=== PATIENT | female | born 1930 | race Hispanic/Latino ===

== ENCOUNTER 2019-01-03 13:12 | Observation (INO) | payer MEDICARE, OTHER ==
[~2019-01-03] VITALS: Ht 170.2 cm; Wt 65.8 kg
--- OUTSIDE RECORDS SUMMARY | 2019-01-03 13:15 | XMS REPORT ---
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 Allergies, Adverse Reactions, Alerts Allergy Name Allergy Type Status Severity Reaction(s) Onset Date Inactive Date Treating Clinician Comments No Known Allergies DA Active U 2018-10-15 00:00:00 No Known Allergies DA Active U 2018-08-13 00:00:00 No Known Drug Intolerances DA Active U 2010-04-06 00:00:00 Medications This patient has no known medications. Results Test Description Test Time Test Comments Text Results Atomic Results Result Comments CHEST SINGLE (PORTABLE) 2018-12-06 20:02:00 [facility] [address] [address] Patient Name: THAD FERNANDEZ MR #: [id number] : 1930 Age/Sex: 88/F Req #: [id number] Adm Physician: Ordered by: YAYO ALMONTE SCORER HELPER Report #: [id number] Location: ER Room/Bed: Procedure: [id number] DX/CHEST SINGLE (PORTABLE) Exam Date: 12/06/18 Exam Time: 190 REPORT STATUS: Signed EXAMINATION: CHEST SINGLE (PORTABLE) INDIC ATION: Short of breath COMPARISON: Chest CT 05/23/2018 FINDINGS: AP view TUBES and LINES: None. LUNGS: Faint reticular bilateral infrahilar opacities, corresponds to scarring seen on chest CT 05/23/2018. There is mild prominence of the central pulmonary vasculature, consistent with pulmonary venous congestion. No consolidations or pulmonary edema. PLEURA: No pleural effusion or pneumothorax. HEART AND MEDIASTINUM: The cardiomediastinal silhouette is unremarkable. There are atherosclerotic calcifications within the aorta. BONES AND SOFT TISSUES: No acute osseous lesion. Soft tissues are unremarkable. UPPER ABDOMEN: No free air under the diaphragm. IMPRESSION: No acute thoracic abnormality. Chronic scarring/atelectasis in the lung bases. Signed by: Dimitri Tompkins DO on 12/06/2018 8:05 PM Dictated By: DIMITRI TOMPKINS DO 04 Transcribed By: LATA on 12/06/182004 COPY TO: YAYO ALMONTE SCORER HELPER HGB HCT 2018-10-15 14:51:00 HEMOGLOBIN (test code=HGB) 9.1 gram/dL 11.5-15.5 HEMATOCRIT (test code=HCT) 30.5 % 36.0-46.0 HGB [id number] 14:55:00* Test Item Value Reference Range Comments HEMOGLOBIN (test code=HGB) 8.5 gram/dL 11.5-15.5 HEMATOCRIT (test code=HCT) 28.4 % 36.0-46.0 KNEE LEFT THREE [id number] 15:33:00 [address] [address] Patient Name: THAD FERNANDEZ MR #: [id number] : 1930 Age/Sex: 87/F Req #: [id number] Adm Physician: PEREZ EID MD Ordered by: PEREZ EID MD Report #: [id number] Location: [facility] Room/Bed: [address] [address] Procedure: [id number] DX/KNEE LEFT THREE VIEWS Exam Date: 05/23/18 Exam T lavonne: 1420 REPORT STATUS: Signed Radiographs of the left knee - 3 views HISTORY: Pain COMPARISON: None av ailable. FINDINGS: Bones: No acute displaced fracture. Osseous alignment is within normal limits. Joints: Mild tricompartmental degener ative arthrosis. No osseous erosion. Soft tissues: Scattered vascular kailyn cifications. IMPRESSION: Mild tricompartmental degenerative arthrosis. N o osseous erosion. Signed by: Dr. Destiney Thomas M.D. 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 COMPARISON: CT chest 05/04/2017. TECHN IQUE: The chest, abdomen, and pelvis was scanned utilizing a multidetector hel ical scanner from the lung apex through the upper thighs after administration of IV contrast. Coronal and sagittal reconstructions were submitted for interp retation. Routine protocol was performed. IV CONTRAST: 100 mL of Isovue 370 COMPLICATIONS: None RADIATION DOSE: Total exam DLP: 498.9 mGy*cm. CTDI vol has been reviewed. It is below the limits set by the Radiation Protocol Co [facility] (RP). Dose modulation, iterative reconstruction, and/or weight based adjustment of the mA/kV was utilized to reduce the radiation dose to as low as reasonably achievable. FINDINGS: LINES AND TUBES: None LUNGS AND A IRWAYS: The central airways are patent. There is mild patchy consolidative op acity within the bilateral lower lobes and left upper lobe. Dependent patchy a telectatic changes. Diffuse opacity limits evaluation for lung nodule. PL EURA: The pleural spaces are clear. HEART AND MEDIASTINUM: The thyroid glan d is normal. No significant mediastinal, hilar or axillary lymphadenopathy is seen. There is cardiomegaly. Atherosclerotic calcifications of the thoracic ao rta and coronary arteries. HEPATOBILIARY: No focal hepatic lesions. No dorys iary ductal dilatation. Cholelithiasis without CT evidence of cholecystitis. SPLEEN: No splenomegaly. PANCREAS: No focal masses or ductal dilatation. ADRENALS: There is a 1.7 cm indeterminate left adrenal nodule. KIDNEYS/URE TERS: No hydronephrosis, stones, or solid mass lesions. PELVIC ORGANS/BLADDER: Unremarkable. PERITONEUM / RETROPERITONEUM: No free air or fluid. LYMPH NODES: No lymphadenopathy. VESSELS: Atherosclerotic changes of the abdominal a breezy and branch vessels. There are two right and a single left-sided renal art ab aneurysm, measuring up to 1.1 cm on the left and measuring up to 1.1 cm an d 0.9 cm on the right. There is focal moderate stenosis of the left proximal c ommon iliac artery and multifocal mild stenoses of the infrarenal abdominal ao rta. GI TRACT: No evidence of distention. There is a 6.7 x 4.9 cm mass invo lving the lesser curvature of the stomach. There are adjacent perigastric lymp h nodes, measuring up to 1.1 cm short axis. There is some fluid within the dis stella esophagus. Colonic diverticulosis without CT evidence of diverticulitis. BONES AND SOFT TISSUES: No acute osseous abdomen. No suspicious lytic or b lastic lesions. IMPRESSION: Gastric mass consistent with malignancy. Gastric lymphadenopathy and left adrenal nodule are suspicious for metastatic disease. No evidence of metastatic disease within the thorax. Multi focal patchy opacities in the lower lobes and left upper lobe could represent atelectasis or pneumonia in the appropriate clinical context. Extensive ath erosclerotic changes of the abdominal aorta and branch vessels. Focal moderate stenosis of the left common iliac artery. 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 Signed by: Dr. Nancy Vargas MD on 05/23/2018 3:32 PM Dictated By: NANCY VARGAS MD 1532 COPY TO: PEREZ EID MD CT CHEST [id number] 15:02:00 [address] [place] [address] Patient Name: THAD FERNANDEZ MR #: [id number] : 1930 Age/Sex: 87/F Req #: [id number] Adm Physician: PEREZ EID MD Ordered by: PEREZ EID MD Report #: [id number] Location: [facility] Room/Bed: [address] [place] [address] Procedure: [id number] CT/CT CHEST W Exam Date: 05/23/18 Exam Time: 1450 REPORT STATUS: Signed EXAM: CT ch est, abdomen, and pelvis with contrast INDICATION: Presumed gastric cancer, 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 COMPARISON: CT chest 05/04/2017. TECHNIQUE: The chest, abdomen, and pelvis was scanned utilizing a multidetector helical scan ner from the lung apex through the upper thighs after administration of IV con trast. Coronal and sagittal reconstructions were submitted for interpretation. Routine protocol was performed. IV CONTRAST: 100 mL of Isovue 370 COMPLI CATIONS: None RADIATION DOSE: Total exam DLP: 498.9 mGy*cm. CTDIvol has b een reviewed. It is below the limits set by the Radiation Protocol Committee ( RPC). Dose modulation, iterative reconstruction, and/or weight based adjustmen t of the mA/kV was utilized to reduce the radiation dose to as low as reasonab ly achievable. FINDINGS: LINES AND TUBES: None LUNGS AND AIRWAYS: The central airways are patent. There is mild patchy consolidative opacity wit hin the bilateral lower lobes and left upper lobe. Dependent patchy atelectati c changes. Diffuse opacity limits evaluation for lung nodule. PLEURA: The pleural spaces are clear. HEART AND MEDIASTINUM: The thyroid gland is norm al. No significant mediastinal, hilar or axillary lymphadenopathy is seen. The re is cardiomegaly. Atherosclerotic calcifications of the thoracic aorta and c oronary arteries. HEPATOBILIARY: No focal hepatic lesions. No biliary duct al dilatation. Cholelithiasis without CT evidence of cholecystitis. SPLEEN: No splenomegaly. PANCREAS: No focal masses or ductal dilatation. ADRENALS : There is a 1.7 cm indeterminate left adrenal nodule. KIDNEYS/URETERS: No hydronephrosis, stones, or solid mass lesions. PELVIC ORGANS/BLADDER: Unremark able. PERITONEUM / RETROPERITONEUM: No free air or fluid. LYMPH NODES: No lymphadenopathy. VESSELS: Atherosclerotic changes of the abdominal aorta and branch vessels. There are two right and a single left-sided renal artery aneur ysm, measuring up to 1.1 cm on the left and measuring up to 1.1 cm and 0.9 cm on the right. There is focal moderate stenosis of the left proximal common darrius ac artery and multifocal mild stenoses of the infrarenal abdominal aorta. GI TRACT: No evidence of distention. There is a 6.7 x 4.9 cm mass involving the lesser curvature of the stomach. There are adjacent perigastric lymph nodes, measuring up to 1.1 cm short axis. There is some fluid within the distal eso phagus. Colonic diverticulosis without CT evidence of diverticulitis. BONES AND SOFT TISSUES: No acute osseous abdomen. No suspicious lytic or blastic le sions. IMPRESSION: Gastric mass consistent with malignancy. Gastric lymphadenopathy and left adrenal nodule are suspicious for metastatic disease. No evidence of metastatic disease within the thorax. Multifocal pat dixie opacities in the lower lobes and left upper lobe could represent atelectas is or pneumonia in the appropriate clinical context. Extensive atherosclero tic changes of the abdominal aorta and branch vessels. Focal moderate stenosis of the left common iliac artery. 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 Signed by: Dr. Nancy Vargas MD on 05/23/2018 3:32 PM Dict ated By: NANCY VARGAS MD 1532 Transcribed By: LATA on 05/23/18 1532 COPY TO: PEREZ EID MD CHEST SINGLE (PORTABLE)2018-05-20 22:21:00 [address] [address] Patient Name: THAD FERNANDEZ MR #: [id number] : 1930 Age/Sex: 87/F Req #: [id number] Adm Physician: Ordered by: ROSAURA SANTIAGO MD Report #: [id number] Location: ER Room/Bed: Procedure: [id number] DX/CHEST SINGLE (PORTABLE) Exam Date: 05/20/18 Marv m Time: 2204 REPORT STATUS: Signed EXAM: XR CHEST 1 VIEW DATE: 05/20/2018 9:27 PM INDICATION: Dizziness COMPARISON: 12/07/2017, no report available FINDINGS: Lines and T ubes: None Heart and Mediastinum: Accentuated by low lung voids. Lungs and Pleura: Patchy basilar opacities. Bones and Soft Tissues: No acute fin dings. IMPRESSION: 1. Basilar opacities may be due to low lung lungs. S uperimposed infectious process, particularly on the left, possible. Missy d by: Dr. Kristopher Boss MD on 05/20/2018 10:22 PM Dictated By: KRISTOPHER WALTERS MD 21 Transcribed By: LATA on 05/20/182221 COPY TO: ROSAURA SANTIAGO MD US ABDOMEN [id number] 15:10:00 [place] [address] Patient Name: THAD FERNANDEZ MR #: [id number] : 1930 Age/Sex: 87/F Req #: [id number] Adm Physician: Ordered by: ALBERTO ERAZO SCORER HELPER Report #: [id number] Location: ER Room/Bed: Procedure: [id number] US/US ABDOMEN COMPLETE Exam Date: 12/07/17 Exam Time: 1355 REPORT STAT US: Signed EXAM: Complete Abdominal Ultrasound INDICATION: Abdominal ultr asound COMPARISON: None. TECHNIQUE: Transverse and longitudinal images of the upper abdomen were obtained. FINDINGS: Liver: Size: 15.4 cm in the right midclavicular line, normal Appearance: Increased echogenicity, smooth contour Mass: No focal masses Spleen: Size: 9.5 cm in length, normal Echogenicity: Normal Mass: No focal masses Gallbladder: St ones/Sludge: There is a 1.7 cm gallstone Wall: 0.4 cm Appearance: No pericho lecystic fluid or hydrops. Sonographic Hernandez's Sign: Negative Bile Tamir ts: Intrahepatic Ducts: No dilatation Extrahepatic Ducts: Common bile duct m easures 0.3 cm, no dilatation Pancreas: Visualized portions of the pancre atic neck are normal. Kidneys: Length: Right 8.5 cm Lef t 9.5 cm Echogenicity: Increased Collecting System: No hydronephrosis Stone: None Cyst/Mass: None Vessels: Aorta: Visualized portions are no rmal Inferior Vena Cava: Visualized portions are normal Main Portal Vein: 0. 9 cm, normal size with hepatopedal flow. Free Fluid: No ascites or pleura l effusion IMPRESSION: 1. Cholelithiasis. There is borderline thickening of the gallbladder wall, but no other signs of acute cholecystitis. Correlate clinically. 2. Diffuse hepatic steatosis. 3. Mildly increased renal echogenicity, suggesting medical renal disease. Signed by: Dr. Todd vital M.D. on 12/07/2017 3:12 PM Dictated By: TODD PICHARDO MD Electr onically Signed By: TODD PICHARDO MD on 12/07/17 1512 Transcribed By: DANG Rosales on 12/07/17 1512 COPY TO: ALBERTO ERAZO SCORER HELPER CHEST SINGLE (PORTABLE)2017-12-07 14:09:00 [place] [address] Patient Name: THAD FERNANDEZ MR #: [id number] : 1930 Age/Sex: 87/F Req #: [id number] Adm Physician: Ordered by: ALBERTO ERAZO NP Report #: [id number] Location: ER Room/Bed: Procedure: [id number] DX/CHEST SINGLE (PORTABL E) Exam Date: 12/07/17 Exam Time: 1342 REPORT STATUS: Signed EXAMINATION: CHEST SINGLE (PORTABLE) 12/07/2017 1:22 PM COMPARISON: CT chest from 05/04/2017 INDICATION: Stomach problems DISCUSSION: LINES: None. LUNGS: Biapical pleural/parenchymal scarring. No pneumonia or pulmonary edema. PLEURA: No pleural effusion or pneumot horax. HEART AND MEDIASTINUM: The cardiomediastinal silhouette is unremark able. BONES AND SOFT TISSUES: No acute osseous lesion. Multilevel degenera tive changes of the thoracic spine. IMPRESSION: No evidence of pneu monia or pulmonary edema. Todd Pichardo MD Signed by: Dr. Todd vital M.D. on 12/07/2017 2:11 PM Dictated By: TODD IPCHARDO MD Electr onically Signed By: TODD PICHARDO MD on 12/07/17 1411 Transcribed By: DANG Rosales on 12/07/17 1411 COPY TO: ALBERTO ERAZO SCORER HELPER CT CHEST W [place] [address] Patient Name: THAD FERNANDEZ MR #: [id number] : Age/Sex: 86/F Req #: [id number] Adm Physician: Ordered by: MARISELA TIMMONS MD Report #: [id number] Location: ER Room/Bed: Procedure: [id number] CT/CT CHEST W Exam Date: Exam Time: REPORT STATUS: Signed EXAM: CT Chest W ITH contrast INDICATION: Chest pain COMPARISON: None available TE CHNIQUE: Chest was scanned utilizing a multidetector helical scanner from the lung apex through the level of the diaphragm after administration of IV contr ast. Coronal and sagittal reconstructions were submitted for interpretation. Protocol: Pulmonary embolus protocol IV CONTRAST: 100 mL of Isovue 370 COMPLICATIONS: None RADIATION DOSE: Total exam DLP: 498.9 mGy*cm. C TDIvol has been reviewed. It is below the limits set by the Radiation Protocol Committee (RPC). FINDINGS: LINES/ TUBES: None. Heart: No cardio megaly. No pericardial effusion. Vessels: No intraluminal filling defect w ithin the pulmonary arteries to the segmental level. Atherosclerotic calcific ations of the thoracic aorta and coronary arteries. Mediastinum: No med iastinal or hilar mass or lymphadenopathy. Normal thyroid. Lungs: No paren chymal mass. Airspace opacities are present in the right lower lobe, series 3 image 75, and the left upper lobe, series 3 image 58. Normal parenchyma. Pleura: No pleural effusion. No pneumothorax. Soft tissues: Normal. No axillary mass or lymphadenopathy. Bones: No acute osseous abnormality. De generative changes of the thoracic spine. Adrenal glands: No adrenal nod ules. Abdomen: The partially visualized portions of the upper abdomen are unremarkable. Cholelithiasis. IMPRESSION: 1. No evidence of pulmonary arterial embolism or thrombosis to the segmental level. 2. Airspace opacit ies in the right lower lobe and left upper lobe may represent a developing pne umonia. Signed by: Dr. Shobha Gee M.D. on 05/04/2017 10:00 AM Di ctated By: SHOBHA GEE MD 1000 Transcribed By: LATA on 05/04/17 1000 COPY TO: MARISELA TIMMONS MD CT BRAIN WO [place] [address] Patient Name: THAD FERNANDEZ MR #: [id number] : 1930 Age/Sex: 86/F Req #: [id number] Adm Physician: Ordered by: JOSE DAVID ALICIA MD Report #: [id number] Location: ER Room/Bed: Procedure: [id number] CT/CT BRAIN WO Exam Date: Exam Time: REPORT STATUS: Signed Exam: Head CT without contrast History: Dizziness, weakness Comparison studies: Head CT 08/05/2015. Technique: Axial images were obtained from the skull base to t he vertex. Coronal and sagittal images reconstructed from the axial data. In travenous contrast: None Findings: Scalp: No abnormalities. Bones: N o fractures, blastic or lytic lesions. Brain sulci: Mildly prominent. Bryce tricles: Mild compensatory dilatation. No hydrocephalus. Extra-axial spaces: A 7 mm ossification at the right frontal convexity which may represent benign e xostosis or possibly small incidental meningioma without mass effect is unchan ged. No other mass or fluid collection. Parenchyma: No mass, acute hemor rhage or acute cortical vascular insults. A few scattered hypodensities in the supratentorial white matter are nonspecific, but most compatible with chronic small vessel ischemic changes. Sellar/suprasellar region: No abnormalitie s. Craniocervical junction: Patent foramen magnum. No Chiari one malformation. Incidental findings: Atherosclerotic calcifications in the carotid siph ons. IMPRESSION: No acute intracranial abnormalities. No changes fr om the previous head CT 08/05/2015. Chronic findings: 1. Mild generalized volume loss. 2. Mild chronic microvascular ischemic changes. Signed by: Dr. Yesica Tucker M.D. on 05/04/2017 8:12 AM Dictated By: YESICA TUCKER MD 1 Transcribed By: LATA on 05/04/17811 COPY TO: JOSE DAVID ALICIA MD CHEST [address] [facility] [address] [address] Patient Name: THAD FERNANDEZ MR #: [id number] : 1930 Age/Sex: 86/F Req #: [id number] Adm Physician: Ordered by: JOSE DAVID ALICIA MD Report #: [id number] Location: ER Room/Bed: Procedure: [id number] DX/CHEST 2 VIEWS Exam Date: Exam Time: 0745 REPORT STATUS: Signed EXAMINATION: Chest, CHEST 2 VIEWS INDICATION: Chest pain COMPARIS ON: Chest 2 views 08/05/2015 FINDINGS: LINES: None. Hea rt: Normal cardiac silhouette. Vascular: The pulmonary vasculature is with in normal limits. Atherosclerotic calcifications of the aortic arch. Med iastinum: No mediastinal, hilar, or axillary mass or lymphadenopathy. Lungs : No parenchymal mass. No focal consolidation. Bibasilar atelectasis. Pleu ra: No pleural effusion. No pneumothorax. Bones: No acute osseous abnorma lity. Degenerative changes of the thoracic spine. Soft tissues: Normal. Impression: No acute radiographic abnormality. Signed by: Dr. Shobha Gee M.D. on 05/04/2017 9:10 AM Dictated By: SHOBHA daniels Signed By: SHOBHA GEE MD on 05/04/17909 Transcribed By: LATA on 909 COPY TO: JOSE DAVID ALICIA MD
[2019-01-03 14:04] LABS: BASOPHILS # (AUTO) 0.1 (0.0-0.1); BASOPHILS % 0.5 % (0.0-1.0); EOSINOPHILS # (AUTO) 0.1 (0.0-0.4); EOSINOPHILS % 0.5 % (0.0-6.0); LYMPHOCYTES # (AUTO) 1.1 (1.0-3.2); LYMPHOCYTES % 8.8 % (18.0-39.1); MEAN CORPUSCULAR HEMOGLOBIN 22.4 pg (28-32); MEAN CORPUSCULAR HGB CONC 29.7 g/dL (31-35); MEAN CORPUSCULAR VOLUME 75.3 fL (81-99); MONOCYTES # (AUTO) 0.8 (0.2-0.8); MONOCYTES % 6.5 % (4.4-11.3); NEUTROPHILS # (AUTO) 10.4 (2.1-6.9); NEUTROPHILS % 83.1 % (38.7-80.0); PLATELET COUNT 351 x10e3/uL (140-360); RED BLOOD COUNT 3.04 x10e6/uL (3.6-5.1); RED CELL DISTRIBUTION WIDTH 18.6 % (11.7-14.4)
[2019-01-03 14:12] LABS: INR 1.07; PROTHROMBIN TIME 14.4 seconds (11.9-14.5)
[2019-01-03 14:13] LABS: BILIRUBIN,URINE NEGATIVE (NEGATIVE); CLARITY,URINE CLEAR (CLEAR); COLOR,URINE YELLOW (YELLOW); KETONES,URINE TRACE (NEGATIVE); LEUKOCYTE ESTERASE ,URINE NEGATIVE (NEGATIVE); NITRITE,URINE NEGATIVE (NEGATIVE); PROTEIN,URINE DIPSTICK TRACE (NEGATIVE); URINE UROBILINOGEN 0.2 mg/dL (0.2 - 1)
[2019-01-03 14:13] LABS: PARTIAL THROMBOPLASTIN TIME 34.3 seconds (23.8-35.5)
[2019-01-03 14:19] LABS: ALBUMIN 2.5 g/dL (3.5-5.0); ALBUMIN/GLOBULIN RATIO 0.8 (0.8-2.0); ANION GAP 10.6 mmol/L (8-16); CALCIUM 7.9 mg/dL (8.4-10.2); CREATININE, SERUM 0.95 mg/dL (0.57-1.11); POTASSIUM 3.6 mmol/L (3.5-5.1)
[2019-01-03 14:19] LABS: HEMATOCRIT 22.9 % (34.2-44.1); HEMOGLOBIN 6.8 g/dL (12.0-16.0)
[2019-01-03 14:25] LABS: CREATINE KINASE MB 3.1 ng/mL (0-5.0)
[2019-01-03] MEDS ORDERED: SODIUM CHLORIDE 0.9% 250ML 250 ML IV ONE (14:30)
[2019-01-03 14:39] LABS: BACTERIA,URINE MANY /HPF; EPITHELIAL CELLS,URINE RARE /LPF
[2019-01-03] MEDS: SODIUM CHLORIDE 0.9% 1000ML 1,000 ML IV SCH (14:54)
--- NOTE | 2019-01-03 14:58 | Diagnostic Imaging Report ---
Examination: Single AP view of the chest. COMPARISON: None. INDICATION: Weakness, numbness DISCUSSION: Lines/tubes: None. Lungs: The lungs are well inflated and clear. There is no evidence of pneumonia or pulmonary edema. Pleura: There is no pleural effusion or pneumothorax. Heart and mediastinum: The heart and the mediastinum are unremarkable. Bones and soft tissues: No acute bony abnormalities. IMPRESSION: 1. No acute cardiopulmonary abnormalities. Signed by: Dr. Vimal Jeronimo M.D. on 01/03/2019 2:55 PM
[2019-01-03] MEDS ORDERED: B-12 5,000 MCG1 EACH SL (15:43)
[2019-01-03] MEDS ORDERED: LEVOTHYROXINE88 MCG PO (15:43)
[2019-01-03] MEDS ORDERED: AMLODIPINE BES2.5 MG PO (15:43)
--- NOTE | 2019-01-03 15:43 | NUR ---
HOME MEDS OBTAINED FROM DAUGHTER AND ENTERED INTO THE COMPUTER
[2019-01-03 16:06] VITALS: BP 154/65
[2019-01-03 16:11] VITALS: BP 154/65
[2019-01-03] MEDS ORDERED: ACETAMINOPHEN 325 MG TAB PO PRN (18:00)
[2019-01-03] MEDS ORDERED: ONDANSETRON HCL INJ 2MG/ML 2ML 2 MG/ML VIAL IV PRN (18:00)
[2019-01-03 19:26] VITALS: BP 154/65
[2019-01-03 20:00] VITALS: BP 121/57
[2019-01-03] MEDS ORDERED: SODIUM CHLORIDE 0.9% 250ML 500 ML ONE (22:20)
--- NOTE | 2019-01-03 23:20 | NUR ---
Consent obtained and blood transfusion started. No adverse reaction noted. Daughter in law at bedside.
[2019-01-04] VITALS: BP 139/62
[2019-01-04] MEDS: SODIUM CHLORIDE 0.9% 1000ML 1,000 ML IV SCH (00:46)
--- NOTE | 2019-01-04 01:57 | NUR ---
First unit of blood finished and second unit started. No reaction noted in first 15 minutes. Will continue to monitor.
--- NOTE | 2019-01-04 02:22 | History and Physical ---
PRIMARY CARE PHYSICIAN: Dr. Emilio Hoover. CHIEF COMPLAINT: Generalized weakness, shortness of breath, and feeling dizziness. HISTORY OF PRESENT ILLNESS: This is an 88-year-old female with past medical history of hypertension, hypothyroidism, and stomach tumor with recurrent anemia, presented with complaints of generalized weakness, shortness of breath and dizziness with walking. She was recently admitted about a month ago for similar problems and had received 2 units of blood and was discharged home once hemoglobin stabilized. She denies any nausea, vomiting, fever, chills, chest pain, abdominal pain, dysuria, melena, or hematemesis. She has been taking vitamin B12 [id number]. This morning she states she was taking her medication and felt very weak and dizzy, so she reported to the ER for further evaluation. PAST MEDICAL HISTORY: 1. Hypertension. 2. Hypothyroidism. 3. Stomach cancer. 4. It was told that due to her age, will not be able to undergo treatment. PAST SURGICAL HISTORY: None. FAMILY MEDICAL HISTORY: Father and mother had heart disease. Reports brothers had cancer. SOCIAL HISTORY: She denies any tobacco, alcohol, or illicit drug use. She is retired, independent with activities, lives with her son and family. ALLERGIES: NO KNOWN ALLERGIES. REVIEW OF SYSTEMS: GENERAL: Fatigue. HEENT: No trauma to the head. LUNGS: Reports shortness of breath. Denies any cough or hemoptysis. CARDIOVASCULAR: No chest pain or palpitations. GI: No abdominal pain. Reports nausea, but no vomiting. NEUROLOGIC: Alert and oriented. MUSCULOSKELETAL: Generalized weakness. SKIN: Dry and intact. No bruising or rash noted. PHYSICAL EXAMINATION: VITAL SIGNS: Temperature 96.8, pulse is 71, respirations 16, pulse ox is 97% on room air. GENERAL: Generalized weakness that appears to be in no acute distress. HEENT: Normocephalic, atraumatic. LUNGS: Clear to auscultation. CARDIOVASCULAR: Regular rate and rhythm. GI: Abdomen is soft, nontender. Active bowel sounds. NEURO: Alert, awake and oriented x3. MUSCULOSKELETAL: Active ROM. SKIN: Dry and intact. No gross abnormalities. LABORATORY DATA: WBC 12.48, hemoglobin 6.8, hematocrit 22.9, and platelets 351. Sodium 138, potassium 3.6, chloride 109, carbon dioxide 22, creatinine 0.95, BUN 20, estimated GFR 56. Troponins negative. Albumin 2.5. PT 14.4, INR 1.07, aPTT 34.3. Urine, trace protein and ketones, no leukocyte esterase, has wbc of 6-10 and many bacteria. IMAGING: Chest x-ray with no acute cardiopulmonary abnormalities. IMPRESSION AND PLAN: 1. Symptomatic anemia with a hemoglobin of 6.8, was transfused 2 units of blood PRBCs and repeat CBC in a.m. 2. Mild leukocytosis, likely reactive. Chest x-ray was unremarkable, UA is negative, afebrile, we will repeat labs in a.m. We will hold off antibiotics. 3. Hypertension. We will resume home dose of amlodipine. 4. Hypothyroidism. We will resume home dose of levothyroxine. 5. Stomach cancer per patient and family. Due to her age, was advised not to undergo treatment. So, she is DNR and only treating symptomatically. 6. Deep vein thrombosis prophylaxis. Will use SCDs for now due to anemia. Discussed treatment plan with family and the patient and agreed with the plan. Dictated by VAL Frzaier Nico Solis MD MY/MODL /[id number] The patient was seen and examined on 01/03/2019. Agree with the findings and plan as documented by VAL Concepcion. MTDD
[2019-01-04 04:00] VITALS: BP 164/67
--- NOTE | 2019-01-04 05:39 | NUR ---
Patient transferred to room 109, along with daughter.
[2019-01-04] MEDS ORDERED: LEVOTHYROXINE SODIUM 88 MCG TAB PO SCH (06:00)
[2019-01-04] MEDS ORDERED: FAMOTIDINE 20 MG TAB PO SCH (07:30)
[2019-01-04 07:35] LABS: BASOPHILS # (AUTO) 0.1 (0.0-0.1); BASOPHILS % 0.5 % (0.0-1.0); EOSINOPHILS # (AUTO) 0.2 (0.0-0.4); EOSINOPHILS % 1.3 % (0.0-6.0); HEMATOCRIT 30.9 % (34.2-44.1); HEMOGLOBIN 9.6 g/dL (12.0-16.0); LYMPHOCYTES # (AUTO) 1.6 (1.0-3.2); LYMPHOCYTES % 12.3 % (18.0-39.1); MEAN CORPUSCULAR HEMOGLOBIN 24.2 pg (28-32); MEAN CORPUSCULAR HGB CONC 31.1 g/dL (31-35); MONOCYTES % 7.4 % (4.4-11.3); NEUTROPHILS # (AUTO) 10.4 (2.1-6.9); NEUTROPHILS % 77.9 % (38.7-80.0); PLATELET COUNT 287 x10e3/uL (140-360); RED BLOOD COUNT 3.96 x10e6/uL (3.6-5.1); RED CELL DISTRIBUTION WIDTH 18.1 % (11.7-14.4)
[2019-01-04 07:43] LABS: ANION GAP 10.7 mmol/L (8-16); BLOOD UREA NITROGEN 24 mg/dL (7-26); BUN/CREATININE RATIO 33 (6-25); CALCIUM 7.9 mg/dL (8.4-10.2); CARBON DIOXIDE 24 mmol/L (22-29); CHLORIDE 109 mmol/L (98-107); CREATININE, SERUM 0.73 mg/dL (0.57-1.11); EST GLOMERULAR FILTRATION RATE > 60 ML/MIN (60-); GLUCOSE 97 mg/dL (74-118); POTASSIUM 3.7 mmol/L (3.5-5.1); SODIUM 140 mmol/L (136-145)
[2019-01-04 07:51] VITALS: BP 160/70
[2019-01-04 08:39] VITALS: BP 160/70
[2019-01-04] MEDS ORDERED: AMLODIPINE BESYLATE 5 MG TAB PO SCH (09:00)
[2019-01-04] MEDS ORDERED: IRON SUCROSE 100 MG in SODIUM CHLORIDE 0.9% 100 ML 100 ML IV SCH (10:00)
[2019-01-04 12:12] VITALS: BP 165/71
[2019-01-04] MEDS ORDERED: FEROSUL325 MG PO (14:11)
--- NOTE | 2019-01-04 20:17 | Discharge Summary ---
PRIMARY CARE PHYSICIAN: Dr. Alex Jhaveri. FINAL DIAGNOSES: 1. Symptomatic anemia with recurrent transfusions. 2. There is mild leukocytosis. 3. Hypertension. 4. Gastroesophageal reflux disease. 5. Hypothyroidism. 6. Stomach cancer. CONSULTANTS: None. PROCEDURES: Transfusion of 2 units of PRBCs. HISTORY: Per HPI. HOSPITAL COURSE: This is an 88-year-old female with past medical history of hypertension, hypothyroidism, and stomach tumor with recurrent symptomatic anemia, who presented with complaints of generalized weakness, shortness of breath, and dizziness due to hemoglobin of 6.8. She was transfused 2 units of PRBCs. Her hemoglobin is now 9.6, hematocrit 30.9. The iron level was 11 and transfused one dose of Venofer IV. Chest x-ray was unremarkable. Afebrile, vital signs are stable. Weakness and shortness of breath have resolved. She was discharged home to follow up with her PCP. PHYSICAL EXAMINATION: VITAL SIGNS: Temperature 98.1, pulse is 69, respirations 18, blood pressure 165/71, and pulse ox is 97% on room air. GENERAL: In bed with no acute distress. HEENT: Normocephalic, atraumatic. LUNGS: Clear to auscultation. CARDIOVASCULAR: Normal rate and rhythm. ABDOMEN: Soft and nontender. Active bowel sounds. NEURO: Alert, awake, and oriented x3. MUSCULOSKELETAL: Active ROM. SKIN: Dry and intact. CONDITION AT DISCHARGE: Stable and improved. DISCHARGE MEDICATIONS: See medication list. FOLLOWUP: Follow up with PCP Dr. Alex Jhaveri in 1 week. Follow up with Hematology for iron and blood transfusions as needed. Total time of discharge is 35 minutes. Dictated by VAL Frazier Nico Solis MD MY/MODL /[id number] cc: Alex Jhaveri Seen and examined, updated the son at the bedside in details. Agree with the findings and plan as documented by VAL Concepcion. MTDD
== END 2019-01-04 14:31 | disposition home or self-care (01) ==
LOC: ER 13:12 → ERHOLD 15:43 → IMCU 15:53 → MED/SURG 01-04 05:26
PROVIDERS: ADMIT Internal Medicine; ATTEND Internal Medicine
DX: C16.9 Malignant neoplasm of stomach, unspecified (principal); D63.0 Anemia in neoplastic disease; D62 Acute posthemorrhagic anemia; I10 Essential (primary) hypertension; D64.9 Anemia, unspecified; E03.9 Hypothyroidism, unspecified; Z82.49 Family history of ischemic heart disease and other diseases of the circulatory system; Z80.9 Family history of malignant neoplasm, unspecified; D72.829 Elevated white blood cell count, unspecified; K21.9 Gastro-esophageal reflux disease without esophagitis
CPT/HCPCS: 36415 ×2; 36430; 71045; 80048; 80053; 81001; 82550; 82553; 83540; 84484; 85025 ×2; 85610; 85730; 86850; 86880; 86900; 86905; 86920; 86922; 93005; 99001; 99284; G0378 ×2; J1756; J7030; J7050; P9016 ×2; 86870